=== PATIENT | male | born 1955 | race Caucasian/White ===

== ENCOUNTER → 2019-09-20 11:08 | Outpatient (CLI) | payer BC ==
[2010-01-04 20:24] VITALS: BMI 25.0
[~2019-09-20 11:08] MED LIST: TRIPLA; UNITHROID175 MCG PO
[2019-09-24 07:05] VITALS: BMI 37.1
== END | disposition home or self-care (01) ==
LOC: D.CT 11:08
PROVIDERS: ATTEND Nurse Practitioner
DX: J98.4 Other disorders of lung (principal); R06.02 Shortness of breath; R91.8 Other nonspecific abnormal finding of lung field

== ENCOUNTER 2019-09-24 05:40 | Outpatient (CLI) | payer BC ==
[~2019-09-24] VITALS: Ht 172.7 cm; Wt 110.9 kg
[2019-09-24 06:43] LABS: CALC OSMOLALITY 275 mosm/kg (275-300); CALCIUM 9.1 mg/dL (8.5-10.1); CARBON DIOXIDE 24.8 mmol/L (21.0-32.0); CHLORIDE - SERUM 104 mmol/L (98-107); GLUCOSE 120 mg/dL (74-106); POTASSIUM - SERUM 4.4 mmol/L (3.5-5.1); SODIUM 138 mmol/L (136-145); UREA NITROGEN 10 mg/dL (7-18); eGFR NON AFRICAN AMERICAN 80 mL/min (90-120)
[2019-09-24 06:47] LABS: BASOPHILS 0.3 % (0-2); EOSINOPHILS 2.3 % (0-7); HEMOGLOBIN 17.3 g/dL (13.5-17.5); IMMATURE GRANULOCYTES 0.3 % (0-5); LYMPHOCYTES 28.5 % (15-50); MCH 32.6 pg (26.0-34.0); MCHC 33.9 g/dL (31.0-37.0); MCV 96.2 fL (80.0-100.0); MEAN PLATELET VOLUME 9.9 fL (7.4-10.4); MONOCYTES 9.9 % (2-11); NEUTROPHILS 58.7 % (40-80); RDW 13.7 % (11.5-14.5); WBC 7.8 10x3/uL (4.8-10.8)
[2019-09-24 06:48] LABS: INR 1.07 (0.85-1.17); PROTIME 13.4 SECONDS (11.6-15.0)
[2019-09-24 06:49] LABS: APTT 28.9 SECONDS (22.8-39.4)
[2019-09-24] MEDS ORDERED: TRIPLA (06:50)
[2019-09-24] MEDS ORDERED: UNITHROID175 MCG PO (06:50)
[2019-09-24 07:05] VITALS: BP 128/77; Ht 172.7 cm; Wt 110.9 kg
[2019-09-24 07:14] LABS: PLATELET COUNT 224 10x3/uL (130-400)
--- NOTE | 2019-09-24 09:23 | NUR ---
0905 SEE POST PROCEDURE CHECKLIST FOR VITAL SIGN TRENDS. 0920 ATE 100% FL DIET, DENIES DYSPNEA. O2 AT 2L NC 94% SAT.
--- NOTE | 2019-09-24 11:02 | NUR ---
1102 PORT CXR DONE.
--- NOTE | 2019-09-24 11:56 | NUR ---
1155 ROUNDS BY RAD. HERRERA.
[2019-09-24 12:16] LABS: EOS BF 3 %; MACROPHAGES BF 11 %; NEUT - BF 5 %
[2019-09-26 17:08] LABS: ACID FAST SMEAR Negative (()); AFB SPECIMEN PROCESSING Not Indicated (())
== END 2019-09-24 13:10 | disposition home or self-care (01) ==
LOC: D.CT 05:40
PROVIDERS: Specialist; ATTEND Nurse Practitioner
DX: J90 Pleural effusion, not elsewhere classified (principal); E03.9 Hypothyroidism, unspecified

== ENCOUNTER → 2020-01-01 10:02 | Outpatient (CLI) | payer BC ==
[2019-09-24 07:05] VITALS: BMI 37.1
[2020-01-02 08:11] LABS: ALPHA FETOPROTEIN -(TUMOR MRK) 2.2 ng/mL (0.0-8.3)
[2020-01-02 11:10] LABS: ANA REFLEX - DIRECT Negative (Negative)
== END | disposition home or self-care (01) ==
LOC: D.ECHO 10:02 → D.RT 13:00
PROVIDERS: ATTEND Internal Medicine Pulmonary Disease
DX: R06.00 Dyspnea, unspecified (principal); J90 Pleural effusion, not elsewhere classified; J44.9 Chronic obstructive pulmonary disease, unspecified

== ENCOUNTER → 2020-07-20 13:06 | Outpatient (CLI) | payer BC ==
[2019-09-24 07:05] VITALS: BMI 37.1
== END | disposition home or self-care (01) ==
LOC: D.CT 13:00
PROVIDERS: ATTEND Internal Medicine Pulmonary Disease
DX: J90 Pleural effusion, not elsewhere classified (principal)